=== PATIENT | female | born 1995 | race Two or more races ===

== ENCOUNTER 2018-07-24 11:09 | Emergency (ER) | payer MEDICAID, OTHER ==
[~2018-07-24] VITALS: Ht 154.9 cm; Wt 55.3 kg
[2018-07-24 12:37] LABS: Basophils # (auto) 0 uL; Basophils % (auto) 0.3 % (0.0-2.0); Monocytes # (auto) 0.6 uL
[2018-07-24 12:40] LABS: Eosinophils # (auto) 0.1 uL; Eosinophils % (auto) 0.5 % (0.0-7.0); Lymphocytes # (auto) 2.2 uL; Lymphocytes % (auto) 20.1 % (10.0-50.0); Mean Corpuscular Hemoglobin 22.1 pg (28.0-32.0); Mean Corpuscular Hgb Conc. 32.2 g/dL (32.0-36.0); Mean Corpuscular Volume 68.7 fL (80.0-100.0); Monocytes % (auto) 5.6 % (0.0-12.0); Neutrophils # (auto) 8.1 uL; Neutrophils % (auto) 73.5 % (37.0-80.0); Platelet Count (auto) 436 10^3/uL (140-450); Red Blood Cells 4.95 10^6/uL (4.0-5.20); Red Cell Distribution Width 17.6 % (11.8-14.3)
[2018-07-24 12:53] LABS: Urine Bacteria NONE SEEN /hpf (None Seen); Urine Blood Negative /uL (Negative); Urine Mucus FEW (None Seen); Urine WBC 7 /hpf (0 - 5)
[2018-07-24 13:43] LABS: Albumin 4.2 g/dL (3.4-5.0); Calcium 9.1 mg/dL (8.5-10.1); Potassium 3.7 mmol/L (3.5-5.1)
[2018-07-24 13:47] LABS: Bilirubin, Total 0.6 mg/dL (0.2-1.0); Total Protein 8.3 g/dL (6.4-8.2)
[2018-07-24 16:23] VITALS: BP 126/67
== END 2018-07-24 16:26 | disposition home or self-care (01) ==
LOC: ER 11:13
DX: N39.0 Urinary tract infection, site not specified (principal); R11.2 Nausea with vomiting, unspecified
CPT/HCPCS: 36415; 74176; 80053; 81001; 81025; 85025

== ENCOUNTER 2023-11-07 03:24 | Inpatient (IN) | payer MEDICAID ==
[~2023-11-07] VITALS: Ht 167.6 cm; Wt 78.9 kg
[2023-11-07] MEDS ORDERED: miSOPROStol 100 mcg TAB SL PRN (04:00)
[2023-11-07] MEDS ORDERED: CARBOPROST TROMETHAMINE 250 MCG/1ML VIAL IM PRN (04:00)
[2023-11-07] MEDS ORDERED: DIPHENOXYLATE W/ATROPINE 2.5 MG TAB PO PRN (04:00)
[2023-11-07] MEDS ORDERED: miSOPROStol 100 mcg TAB PR PRN (04:00)
[2023-11-07] MEDS ORDERED: ONDANSETRON HCL 4 MG/2 ML VIAL IV PRN (04:00)
[2023-11-07] MEDS ORDERED: BUTORPHANOL TARTRATE 2 MG/1 ML VIAL IV PRN ×2 (04:00)
[2023-11-07] MEDS ORDERED: LACTATED RINGER'S 1,000 ML IV SCH (04:00)
[2023-11-07 04:18] LABS: Basophils # (auto) 0 10 ^3/uL (0-0.2); Basophils % (auto) 0.5 % (0.0-2.0); Eosinophils # (auto) 0.1 10 ^3/uL (0-0.8); Eosinophils % (auto) 1.1 % (0.0-7.0); Hematocrit 33.1 % (36.0-46.0); Hemoglobin 10.5 g/dL (12.2-16.2); Lymphocytes # (auto) 2.8 10 ^3/uL (0.4-5.4); Lymphocytes % (auto) 28.5 % (10.0-50.0); Mean Corpuscular Hemoglobin 22.4 pg (28.0-32.0); Mean Corpuscular Hgb Conc. 31.8 g/dL (32.0-36.0); Mean Corpuscular Volume 70.4 fL (80.0-100.0); Monocytes # (auto) 0.7 10 ^3/uL (0-1.3); Monocytes % (auto) 6.9 % (0.0-12.0); Neutrophils # (auto) 6.3 10 ^3/uL (1.6-8.6); Nucleated Red Blood Cells % 0.1 %; Red Blood Cells 4.71 10^6/uL (4.0-5.20); Red Cell Distribution Width 16.4 % (11.8-14.3)
[2023-11-07] MEDS: PENICILLIN G POT 5MIL/D5 50ML 50 ML IV ONE (04:25)
[2023-11-07 04:38] LABS: Albumin 4.2 g/dL (3.2-4.8); Alkaline Phosphatase 358 U/L (46-116); Anion Gap 10 (5-15); Aspartate Aminotransferase 15 U/L (13-40); Bilirubin, Total 0.5 mg/dL (0.2-1.0); Calcium 9.5 mg/dL (8.5-10.1); Carbon Dioxide 19 mmol/L (20-30); Chloride 108 mmol/L (98-107); Glucose 92 mg/dL (74-106); Potassium 3.5 mmol/L (3.5-5.1); Sodium 137 mmol/L (136-145); Total Protein 6.9 g/dL (5.7-8.2)
[2023-11-07 04:39] LABS: INR 1.01 (0.9-1.15); Partial Thromboplastin Time 23.6 SEC (24.5-34.5); Prothrombin Time 10.7 sec (9.3-11.8)
[2023-11-07 04:43] LABS: Alanine Aminotransferase < 9 U/L (7-40); BUN/Creatinine Ratio 10.2 (10.0-20.0); Blood Urea Nitrogen < 5 mg/dL (9-23)
[2023-11-07] MEDS: PHISODERM TOP SOLN 240ML BTL TOP PRN (04:57)
[2023-11-07] MEDS: DERMOPLAST 60ML BOTTLE TOP PRN (04:57)
[2023-11-07] MEDS: WITCH HAZEL-GLYCERIN PAD TOP PRN (04:57)
[2023-11-07] MEDS: LACT. RINGERS/OXYTOCIN 20UNITS 500 ML IV ONE ×2 (05:25→06:07)
[2023-11-07] MEDS: LACTATED RINGER'S 1,000 ML IV ONE (05:26)
[2023-11-07] MEDS: LIDOCAINE 2%HCL (LOCAL ANESTH.) INJ 20ML MDV IJ PRN (05:42)
[2023-11-07] MEDS ORDERED: ONDANSETRON ODT 4 MG TAB PO PRN (05:45)
[2023-11-07] MEDS ORDERED: ACETAMINOPHEN 325 MG TAB PO PRN (05:45)
[2023-11-07 05:55] LABS: Urine Bacteria None Seen /hpf (None Seen)
[2023-11-07 06:27] LABS: Urine Blood 3+ /uL (Negative); Urine Clarity Clear (Clear); Urine Color Light-Orange (Yellow); Urine Mucus FEW (None Seen); Urine Protein, UAD TRACE (Negative); Urine Specific Gravity 1.037 (1.001-1.035); Urine Urobilinogen Normal (Negative); Urine WBC 2 /hpf (0 - 5)
[2023-11-07 06:54] LABS: Amphetamine Screen, Urine Neg (NEGATIVE); Barbiturate Scree,Urine Neg (NEGATIVE); Benzodiazephine Screen, Urine Neg (NEGATIVE); Cannabinoid Screen, Urine Neg (NEGATIVE); Cocaine Screen, Urine Neg (NEGATIVE); Opiate Scree,Urine Neg (NEGATIVE); Phencyclidine Screen, Urine Neg (NEGATIVE)
[2023-11-07] MEDS ORDERED: PENICILLIN G POTASSIUM 2,500,000 UNITS in D5W 5% 50 ML IV SCH (08:00)
[2023-11-07] MEDS: IBUPROFEN 600 MG TAB PO PRN (08:07)
[2023-11-07 10:47] VITALS: BP 118/64; PULSE 75; RESP 18; TEMP 97.5; O2SAT 97
[2023-11-07] MEDS: ePHEDrine SULFATE 50 MG/ML AMP IV ONE (11:35)
[2023-11-07] MEDS: fentaNYL CITRATE 100 MCG/2 ML VL IV ONE (11:35)
[2023-11-07] MEDS: METHYLERGONOVINE MALEATE 0.2 MG/ML AMP IM ONE (11:35)
[2023-11-07] MEDS: NALOXONE HCL 0.4 MG/ML VIAL IV ONE (11:36)
[2023-11-07] MEDS: ROPIVACAINE HCL 0 ML ONE (11:36)
[2023-11-07 14:31] VITALS: BP 123/67; PULSE 78; RESP 20; TEMP 98.1; O2SAT 96
[2023-11-07 23:00] VITALS: BP 132/84; PULSE 78; RESP 20; TEMP 98.2; O2SAT 98
[2023-11-07] MEDS: DOCUSATE SOD 100 MG CAP PO SCH (23:27)
[2023-11-08 03:15] VITALS: BP 112/70; PULSE 64; RESP 16; TEMP 97.6; O2SAT 97
[2023-11-08] MEDS ORDERED: IBU600T PO (06:45)
[2023-11-08 07:20] VITALS: BP 129/72; PULSE 64; RESP 17; TEMP 97.7; O2SAT 96
[2023-11-08 08:06] LABS: Rubella Antibodies, IgG 1.19 index (Immune >0.99)
[2023-11-08 11:15] VITALS: BP 112/59; PULSE 144; PULSE 68; RESP 16; RESP 42; TEMP 98.1; TEMP 98.4; O2SAT 97
[2023-11-08 15:00] VITALS: BP 115/68; PULSE 66; RESP 16; TEMP 98.4; O2SAT 97
[2023-11-08 18:45] VITALS: BP 123/83; PULSE 67; RESP 16; TEMP 98.5; O2SAT 100
[2023-11-09 14:06] LABS: RPR Non Reactive (Non Reactive)
== END 2023-11-08 19:00 | disposition home or self-care (01) | DRG 560 ==
LOC: LDRP 03:24 → OBSVTOIN 03:44 → LDRP 11-08 10:30
PROVIDERS: ADMIT Obstetrics & Gynecology; ATTEND Obstetrics & Gynecology
PROC: 10E0XZZ Delivery of Products of Conception, External Approach (ICD-10-PCS; principal; 2023-11-07)
PROC: 0HQ9XZZ Repair Perineum Skin, External Approach (ICD-10-PCS; 2023-11-07)
DX: O70.0 First degree perineal laceration during delivery (principal); Z37.0 Single live birth; Z3A.37 37 weeks gestation of pregnancy
CPT/HCPCS: 36415; 59025; 59409; 76805; 80053; 80307; 81001; 84484; 85025; 85610; 85730; 86592; 86703; 86762; 86803; 86850; 86900; 86901; 87340; 94760; 94762; 96360; 96361; G0378; J2540; J2590; J7060